=== PATIENT | male | born 1990 | race Caucasian/White ===

== ENCOUNTER 2016-05-26 16:35 | Emergency (ER) | payer MEDICAID ==
[2016-05-26 16:43] VITALS: BP 123/86; PULSE 74; RESP 16; TEMP 97.3; O2SAT 96
--- NOTE | 2016-05-26 16:54 | EDPHY ---
General Narrative: CHIEF COMPLAINT: right clavicle pain HISTORY OF PRESENT ILLNESS: Three days history of right clavicle pain, primarily lateral. Mild to moderate pain that is unpredictably paroxysmal. Occasionally worse with palpation and other times it is not. Sometimes improves with rest sometimes not. No fever chills. No trauma or injury. Had an ORIF of the clavicle approximately a year ago by surgeon for [facility]. Has had the pain prior to this, but this is the worst it has been. Mild to moderate. No other associated complaints or modifying factors. PRIOR ORTHO INJURIES: right clavicle status post ORIF 1 year ago ESTABLISHED ORTHOPEDIST: does not recall the name, in [facility] REVIEW OF SYSTEMS: Ten systems reviewed and are negative unless otherwise noted in the HPI EXAMINATION General Appearance: Alert, no distress Head: normocephalic, atraumatic Eyes: Pupils equal and round, no conjunctival pallor or injection ENT, Mouth: Mucous membranes moist Neck: Normal inspection Respiratory: No dyspnea or retractions. No distress . Lungs are clear in all herrera. Cardiovascular: Pulses normal throughout. Brisk cap refill . Symmetric pulses radial, DP at 2+. Neurological: A&O, sensory symmetric, strength symmetric . Normal radial, ulnar and median distributions of the right upper extremity symmetric to the left. Skin: Warm and dry, no rash . Well-healed, surgical incision of the right clavicle. Extremities: Range of motion intact in bilateral shoulders. There is mild tenderness about the lateral aspect of the clavicle on the right side near the AC joint. No crepitus or deformity. There is a surgical incision that is well- healed. No instability or apprehension of the shoulder joint. No crepitus. MDM: 4:50 p.m. 3 days of right clavicle pain primarily over the lateral aspect near the AC joint. No new trauma or injury. No shoulder, elbow or wrist pain. No neuro complaints. No weakness. Has had this pain on and off over the past few months , but now worse. Normal examination with surgical incision intact. X-rays been ordered. Suspect this is intolerance of the surgical hardware. 5:48 p.m. x-ray as interpreted by me reveals a nonunion clavicle fracture. Hardware is intact. No other findings. I discussed this with the patient and I will discharge him home. He is asking for 2nd opinion, thus I have provided our on- call orthopedic information. Patient is comfortable this plan and will discharge him home with a disc and hand should he return back to his established orthopedist in [facility]. ED Precautions: Worsening pain. Erythema, edema, cyanosis, pallor, paresthesia or anesthesia. SUPERVISION: This patient was independently evaluated without the aide of supervising physician. - History Smoking Status: Never smoked - Objective Vital Signs: Initial Vital Signs Temperature (C) 97.3 F 05/26/16 16:39 Heart Rate 74 05/26/16 16:39 Respiratory Rate 16 05/26/16 16:39 Blood Pressure 123/86 H 05/26/16 16:39 O2 Sat (%) 96 05/26/16 16:39 O2 Delivery Mode Room Air Allergies/Adverse Reactions: No Known Allergies Allergy (Verified 05/26/16 16:38) Home Medications: Medication Instructions Recorded NK [No Known Home Meds] 05/26/16 Departure - Departure Disposition: Home, Routine, Self-Care Clinical Impression: Pain of right clavicle Nonunion of clavicle fracture Qualifiers: Encounter type: subsequent encounter Clavicle location: shaft Fracture type: closed Fracture alignment: nondisplaced Laterality: right Qualified Code(s): S42.024K - Nondisplaced fracture of shaft of right clavicle, subsequent encounter for fracture with nonunion Condition: Good Instructions: Clavicle Fracture (ED), Osteoarthritis (ED) Additional Instructions: Follow-up with established orthopedic surgeon. If unavailable, follow up with Orthopedics as listed. Referrals: NONE *PRIMARY CARE P,. [Primary Care Provider] - As per Instructions Melanie Olmstead MD [Medical Doctor] - As per Instructions
== END 2016-05-26 18:11 | disposition home or self-care (01) ==
DX: S42.024A Nondisplaced fracture of shaft of right clavicle, initial encounter for closed fracture (principal); W19.XXXA Unspecified fall, initial encounter